=== PATIENT | male | born 1945 | race Caucasian/White ===

== ENCOUNTER 2023-01-30 05:53 | Emergency (ER) | payer MEDICARE, OTHER ==
[2023-01-30 06:54] LABS: HEMATOCRIT 44.6 % (40.0-54.0); HEMOGLOBIN 16.3 g/dL (13.0-18.0); MEAN CORPUSCULAR HEMOGLOBIN 33.3 pg (27.0-32.0); MEAN CORPUSCULAR HGB CONC 36.5 g/dL (31.0-35.0); MEAN PLATELET VOLUME 11.4 fL (6.0-10.0); RED BLOOD CELL COUNT 4.89 M/uL (4.50-6.50); RED CELL DISTRIBUTION WIDTH 12.5 % (11.0-16.0); WHITE BLOOD CELL COUNT,WBC 8.1 K/uL (4.0-11.0)
[2023-01-30 06:57] LABS: APPEARANCE,URINE CLEAR (CLEAR); BILIRUBIN,URINE NEGATIVE (NEGATIVE); COLOR,URINE YELLOW; GLUCOSE,URINE NEGATIVE (NEGATIVE); KETONES,URINE 40 mg/dL (NEGATIVE); LEUKOCYTE ESTERASE,URINE NEGATIVE (NEGATIVE); NITRITE,URINE NEGATIVE (NEGATIVE); OCCULT BLOOD,URINE NEGATIVE (NEGATIVE); PH,URINE 7.5 (5.0-8.0); PROTEIN,URINE NEGATIVE (NEGATIVE)
[2023-01-30 07:06] LABS: ANION GAP 11.5 mmol/L (5.0-15.0); BUN/CREATININE RATIO 8.5 (6-25); CALCIUM 8.5 mg/dL (8.5-10.1); CREATININE 1.06 mg/dL (0.70-1.30); EST CRCL DRUG DOSING (CG) 56.3 mL/min; POTASSIUM,K 3.5 mmol/L (3.5-5.1)
[2023-01-30] MEDS ORDERED: Sodium Chloride 0.9% 1,000 ML IV SCH (07:15)
[2023-01-30] MEDS ORDERED: traZODone 100 MG Tab ONE (08:00)
== END 2023-01-30 08:21 | disposition home or self-care (01) ==
LOC: LB.ED 05:53
DX: G47.09 Other insomnia (principal); I48.91 Unspecified atrial fibrillation; I10 Essential (primary) hypertension; Z87.891 Personal history of nicotine dependence; Z79.01 Long term (current) use of anticoagulants; Z79.899 Other long term (current) drug therapy
CPT/HCPCS: 36415; 80048; 81003; 85027; 96360; 99283; A9270; J7030; 99282